=== PATIENT | male | born 1930 | race Caucasian/White ===

== ENCOUNTER → 2017-11-21 | Outpatient (CLI) | payer MEDICARE ==
[~2017-11-21] MED LIST: ASPI-515 PO; ATOR40TA78 PO; CALC-451 PO; CIPR500T87 PO; ESOM20CA PO; FINA5TAB4 PO; LEVO50TA5 PO; MAGN300C PO; METR500T PO; OMEG-76 PO; RAME8TAB19 PO; VITA1CAP PO
== END | disposition home or self-care (01) ==
LOC: CFH 07:20
PROVIDERS: ATTEND Internal Medicine Cardiovascular Disease
DX: R93.1 Abnormal findings on diagnostic imaging of heart and coronary circulation (principal); R06.02 Shortness of breath; I44.0 Atrioventricular block, first degree
CPT/HCPCS: 78452; 93017; A9502

== ENCOUNTER 2019-03-29 11:06 | Outpatient (CLI) | payer MEDICARE | END 2019-03-29 23:59 | disposition home or self-care (01) | LOC: CFH 11:06 | PROVIDERS: ATTEND Urology | DX: C61 Malignant neoplasm of prostate (principal); M41.84 Other forms of scoliosis, thoracic region; M85.88 Other specified disorders of bone density and structure, other site; Z95.2 Presence of prosthetic heart valve | CPT/HCPCS: 71046 ==

== ENCOUNTER 2019-04-02 07:54 | Outpatient (CLI) | payer MEDICARE ==
[2019-04-02] MEDS ORDERED: OMNIPAQUE 350 MG/ML, 150 ML BOTTLE ONE (08:30)
== END 2019-04-02 23:59 | disposition home or self-care (01) ==
LOC: CFH 07:54
PROVIDERS: ATTEND Urology
DX: C61 Malignant neoplasm of prostate (principal); N40.0 Benign prostatic hyperplasia without lower urinary tract symptoms; N20.0 Calculus of kidney; K76.9 Liver disease, unspecified; N28.9 Disorder of kidney and ureter, unspecified
CPT/HCPCS: 71260; 74178; Q9967

== ENCOUNTER 2019-05-02 13:40 | Emergency (ER) | payer MEDICARE ==
[~2019-05-02] VITALS: Ht 167.6 cm; Wt 71.8 kg
[2019-05-02] MEDS ORDERED: LISI-170 PO (14:28)
[2019-05-02] MEDS ORDERED: BICA50TA5 PO (14:29)
--- NOTE | 2019-05-02 14:30 | NUR ---
FIRST CONTACT WITH PT. PT STATES "I'VE BEEN THROUGH A LOT LATELY BEING TREATED FOR PROSTATE CANCER AND ALL OF A SUDDEN I'VE FELT RATHER DEPRESSED. ALSO THIS MORNING MENTALLY I AM NOT QUITE ALERT I WOULD LIKE TO BE". PER FAMILY HE'S NOT SHARP HE USED TO BE. HX MICRO SZ. PT'S AOX4 HERE. RESPS EVEN AND UNLABORED. BP/SPO2 MONITORS IN PLACE. CALL LIGHT WITHIN REACH. EDMD AT BEDSIDE TO EVALUATE AT THIS TIME.
[2019-05-02 14:47] LABS: BASOPHILS # (AUTO) 0.01 x10^3/uL (0-0.1); BASOPHILS % (AUTO) 0 % (0-1); EOSINOPHILS # (AUTO) 0.07 x10^3/uL (0-0.4); EOSINOPHILS % (AUTO) 1 % (1-7); LYMPHOCYTES # (AUTO) 0.97 x10^3/uL (1-3.4); LYMPHOCYTES % (AUTO) 13 % (22-44); MD NO; MEAN CORPUSCULAR HEMOGLOBIN 31.9 pg (27.5-34.5); MEAN CORPUSCULAR HGB CONC 33.1 g/dL (33.2-36.2); MEAN CORPUSCULAR VOLUME 96.5 fL (81-97); MONOCYTES # (AUTO) 0.67 x10^3/uL (0.2-0.8); MONOCYTES % (AUTO) 9 % (2-9); NEUTROPHILS # (AUTO) 6.04 x10^3/uL (1.8-6.8); NEUTROPHILS % (AUTO) 78 % (42-75); PLATELET COUNT 206 x10^3/uL (130-400); RED BLOOD COUNT 4.24 x10^6/uL (4.38-5.82); RED CELL DISTRIBUTION WIDTH 13.2 % (9.4-14.8)
[2019-05-02 14:55] LABS: MICROSCOPIC NOT IND
[2019-05-02 14:59] LABS: ALANINE AMINOTRANSFERASE 31 U/L (12-78); ALBUMIN 3.7 g/dL (3.4-5.0); ANION GAP 6 mmol/L (5-15); CALCIUM 8.5 mg/dL (8.5-10.1); CHLORIDE 108 mmol/L (98-107); CREATININE 1.45 mg/dL (0.7-1.3)
--- NOTE | 2019-05-02 14:59 | NUR ---
SW AT BEDSIDE NOW.
[2019-05-02 15:00] LABS: CULTURE INDICATED? NO
[2019-05-02 15:09] LABS: ALKALINE PHOSPHATASE 94 U/L (45-117); BILIRUBIN,TOTAL 0.4 mg/dL (0.2-1.0); TOTAL PROTEIN 6.8 g/dL (6.4-8.2)
--- NOTE | 2019-05-02 15:21 | NUR ---
PT TO CT NOW.
--- NOTE | 2019-05-02 15:21 | NUR ---
PT AMB TO BR AND BACK TO BR WITH STEADY GAIT.
--- NOTE | 2019-05-02 15:33 | NUR ---
PT BACK TO ROOM FROM CT NOW.
[2019-05-02 15:49] VITALS: BP 151/76
--- NOTE | 2019-05-02 16:11 | NUR ---
edmd at bedside to explain all results at this time. awaiting dispo.
--- NOTE | 2019-05-02 16:40 | NUR ---
Patient given discharge instructions and they have confirmed that they understand the instructions. Patient ambulatory with steady gait.
== END 2019-05-02 16:41 | disposition home or self-care (01) ==
LOC: ED 16:34
DX: F33.9 Major depressive disorder, recurrent, unspecified (principal); I10 Essential (primary) hypertension; E03.9 Hypothyroidism, unspecified; Z85.46 Personal history of malignant neoplasm of prostate
CPT/HCPCS: 36415; 70450; 71045; 80053; 81003; 84443; 85025; 93005; 99284

== ENCOUNTER 2019-09-11 15:49 | Emergency (ER) | payer MEDICARE ==
[~2019-09-11] VITALS: Ht 165.1 cm; Wt 69.5 kg
[~2019-09-11 15:49] MED LIST changes: +BICA50TA5 PO; +LISI-170 PO
[2019-09-11 16:03] VITALS: BP 139/63
[2019-09-11] MEDS ORDERED: DIPH,PERTUSS(ACELL),TET VAC/PF 0.5 ML IM-VACC ONE ×3 (16:28→16:50)
[2019-09-11] MEDS ORDERED: LIDOCAINE-MPF 1%, 5ML ONE (16:28)
[2019-09-11] MEDS ORDERED: LIDOCAINE-MPF 1%, 5ML INFIL ONE (16:30)
--- NOTE | 2019-09-11 16:41 | NUR ---
PT WOULD LIKE US TO CONTACT HIS DAUGHTER CHELSEY [phone]
[2019-09-11] MEDS ORDERED: MICROFIBRILLAR COLLAGEN 1 GM TP ONE (17:07)
[2019-09-11] MEDS ORDERED: MICROFIBRILLAR COLLAGEN 0.5GM/PACK TP ONE (17:30)
== END 2019-09-11 18:27 | disposition home or self-care (01) ==
LOC: ED 18:20
DX: S02.5XXA Fracture of tooth (traumatic), initial encounter for closed fracture (principal); S01.511A Laceration without foreign body of lip, initial encounter; T14.8XXA Other injury of unspecified body region, initial encounter; S50.312A Abrasion of left elbow, initial encounter; S80.212A Abrasion, left knee, initial encounter; E03.9 Hypothyroidism, unspecified; I10 Essential (primary) hypertension; W01.0XXA Fall on same level from slipping, tripping and stumbling without subsequent striking against object, initial encounter; Y93.89 Activity, other specified; Y92.410 Unspecified street and highway as the place of occurrence of the external cause; Y99.8 Other external cause status
CPT/HCPCS: 40650; 70450; 70486; 71046; 90471; 90715; 99284

== ENCOUNTER 2019-09-19 09:21 | Emergency (ER) | payer MEDICARE ==
[~2019-09-19] VITALS: Ht 165.1 cm; Wt 70.9 kg
[2019-09-19 09:41] VITALS: BP 152/75
--- NOTE | 2019-09-20 10:31 | NUR ---
Pt returned to ED, states was seen yesterday for suture removal on laceration to upper lip. Pt verbalizes one suture was left in place and he would like it removed. Spoke with Mallory Naylor RN director of ED, states this RN to remove suture. Wound appears well healing, edges approximated and scabbed. One suture removed from upper lip. Pt tolerated well.
== END 2019-09-19 09:56 | disposition home or self-care (01) ==
LOC: ED 09:50
DX: S01.511D Laceration without foreign body of lip, subsequent encounter (principal); I10 Essential (primary) hypertension; E03.9 Hypothyroidism, unspecified; W18.30XD Fall on same level, unspecified, subsequent encounter
CPT/HCPCS: 99282

== ENCOUNTER 2019-09-26 09:33 | Emergency (ER) | payer MEDICARE ==
[~2019-09-26] VITALS: Ht 167.6 cm; Wt 70.4 kg
[2019-09-26 10:30] LABS: BASOPHILS # (AUTO) 0.01 x10^3/uL (0-0.1); BASOPHILS % (AUTO) 0 % (0-1); EOSINOPHILS # (AUTO) 0.09 x10^3/uL (0-0.4); EOSINOPHILS % (AUTO) 1 % (1-7); LYMPHOCYTES # (AUTO) 0.78 x10^3/uL (1-3.4); LYMPHOCYTES % (AUTO) 11 % (22-44); MD NO; MEAN CORPUSCULAR HEMOGLOBIN 31.7 pg (27.5-34.5); MEAN CORPUSCULAR HGB CONC 33.2 g/dL (33.2-36.2); MEAN CORPUSCULAR VOLUME 95.6 fL (81-97); MONOCYTES # (AUTO) 0.67 x10^3/uL (0.2-0.8); MONOCYTES % (AUTO) 9 % (2-9); NEUTROPHILS # (AUTO) 5.87 x10^3/uL (1.8-6.8); NEUTROPHILS % (AUTO) 79 % (42-75); PLATELET COUNT 313 x10^3/uL (130-400); RED BLOOD COUNT 4.01 x10^6/uL (4.38-5.82); RED CELL DISTRIBUTION WIDTH 13.5 % (9.4-14.8)
[2019-09-26 10:39] LABS: ALBUMIN 3.5 g/dL (3.4-5.0); ANION GAP 6 mmol/L (5-15); CALCIUM 8.7 mg/dL (8.5-10.1); CHLORIDE 108 mmol/L (98-107); CREATININE 1.37 mg/dL (0.7-1.3)
[2019-09-26 12:09] VITALS: BP 156/77
--- NOTE | 2019-09-26 12:10 | NUR ---
ASSIST PRIMARY RN WITH DISCHARGE. PT'S FAMILY MEMBER AT NURSE'S STATION STATING PT IS IMPATIENT, WANTING TO LEAVE NOW. DC INSTRUCTS TO PT AND FAMILY MEMBER WITH VERBALIZED UNDERSTANDING. PT AMBULATORY TO DC DESK.
== END 2019-09-26 12:14 | disposition home or self-care (01) ==
LOC: ED 12:00
DX: R40.0 Somnolence (principal); I10 Essential (primary) hypertension; E03.9 Hypothyroidism, unspecified
CPT/HCPCS: 36415; 70450; 80048; 82040; 85025; 99284

== ENCOUNTER 2019-11-12 04:42 | Observation (INO) | payer MEDICARE ==
[~2019-11-12] VITALS: Ht 167.6 cm; Wt 68.7 kg
[2019-11-12] MEDS ORDERED: SODIUM CHLORIDE FLUSH 10ML SYR IVF ONE (05:30)
--- NOTE | 2019-11-12 05:35 | NUR ---
Pt transported to CT at this time.
[2019-11-12 05:42] LABS: CULTURE INDICATED? YES; MICROSCOPIC INDICATED
[2019-11-12 06:11] LABS: BASOPHILS # (AUTO) 0.02 x10^3/uL (0-0.1); BASOPHILS % (AUTO) 0 % (0-1); EOSINOPHILS # (AUTO) 0.14 x10^3/uL (0-0.4); EOSINOPHILS % (AUTO) 1 % (1-7); LYMPHOCYTES # (AUTO) 0.87 x10^3/uL (1-3.4); LYMPHOCYTES % (AUTO) 7 % (22-44); MD NO; MEAN CORPUSCULAR HEMOGLOBIN 31.8 pg (27.5-34.5); MEAN CORPUSCULAR HGB CONC 33.3 g/dL (33.2-36.2); MEAN CORPUSCULAR VOLUME 95.7 fL (81-97); MEAN PLATELET VOLUME 8.4 fL (7.4-10.4); MONOCYTES # (AUTO) 0.79 x10^3/uL (0.2-0.8); MONOCYTES % (AUTO) 6 % (2-9); NEUTROPHILS % (AUTO) 86 % (42-75); PLATELET COUNT 224 x10^3/uL (130-400); RED BLOOD COUNT 4.22 x10^6/uL (4.38-5.82); RED CELL DISTRIBUTION WIDTH 13.5 % (9.4-14.8)
[2019-11-12 06:21] LABS: INTERNATIONAL NORMALIZED RATIO 0.98 (0.93-1.1); PROTHROMBIN TIME 10.4 Seconds (9.6-11.5)
[2019-11-12 06:23] LABS: ALANINE AMINOTRANSFERASE 31 U/L (12-78); ANION GAP 6 mmol/L (5-15); CALCIUM 9.2 mg/dL (8.5-10.1); CHLORIDE 106 mmol/L (98-107); CREATININE 1.58 mg/dL (0.7-1.3)
[2019-11-12 06:25] LABS: ALKALINE PHOSPHATASE 103 U/L (45-117); BILIRUBIN,TOTAL 0.7 mg/dL (0.2-1.0); TOTAL PROTEIN 7.3 g/dL (6.4-8.2)
--- NOTE | 2019-11-12 07:00 | NUR ---
Late Entry: Report received from Melisa FELTON, pt care transferred to Flynn FELTON and Riya FELTON at this time.
--- NOTE | 2019-11-12 07:05 | NUR ---
Late Entry: Pt resting in gurney, unlabored and even respirations, call light within reach, NAD, denies additional needs at this time. WCTM.
--- NOTE | 2019-11-12 07:47 | NUR ---
Pt resting in gurney, unlabored and even respirations, call light within reach, NAD, denies additional needs at this time. given additional warm balnket for comfort. Urinal emptied. WCTM.
--- NOTE | 2019-11-12 08:44 | NUR ---
Pt resting in bed, NAD, denies additional needs at this time, call light within reach, to be admitted, WCTM.
[2019-11-12] MEDS ORDERED: PIPERACILLIN/TAZO/PMX 3.375GM 50 ML IV ONE (09:30)
[2019-11-12] MEDS ORDERED: PLEASE ENTER HEIGHT AND WEIGHT MC SCH (09:30)
[2019-11-12 11:14] VITALS: BP 150/81
[2019-11-12 11:27] VITALS: BP 150/81
[2019-11-12] MEDS ORDERED: TRAZ-96 PO (11:27)
[2019-11-12] MEDS ORDERED: FLUO10CA13 PO (11:27)
[2019-11-12] MEDS ORDERED: CEFD300C37 PO (11:27)
[2019-11-12] MEDS ORDERED: BUSP7.5T3 PO (11:27)
[2019-11-12] MEDS ORDERED: HEPARIN 5,000 UNITS/ML, 1ML SQ SCH (11:30)
[2019-11-12] MEDS ORDERED: hydrALAzine 20 MG/ML, 1ML IVPush PRN ×2 (11:30→15:30)
[2019-11-12] MEDS ORDERED: ACETAMINOPHEN 325 MG TABLET PO PRN (11:30)
[2019-11-12] MEDS: AMLODIPINE 5 MG TABLET PO SCH (12:59)
[2019-11-12] MEDS: CEFTRIAXONE PMX 1GM/50ML 50 ML IV SCH (12:59)
[2019-11-12 14:07] VITALS: BP 122/67
[2019-11-12] MEDS: BUSPIRONE 10 MG TABLET PO SCH ×2 (14:10→21:25)
[2019-11-12] MEDS: LEVOTHYROXINE 50 MCG TABLET PO SCH (14:10)
[2019-11-12] MEDS ORDERED: CEFTRIAXONE PMX 1GM/50ML 50 ML IV SCH (16:00)
[2019-11-12] MEDS: BICALUTAMIDE 50 MG TABLET PO SCH ×2 (16:31→21:25)
[2019-11-12 19:44] VITALS: BP 145/69
[2019-11-12] MEDS ORDERED: TRAZODONE 50MG TABLET PO SCH (21:00)
[2019-11-12] MEDS ORDERED: ATORVASTATIN 40 MG TABLET PO SCH (21:00)
[2019-11-13 03:00] VITALS: BP 116/65
[2019-11-13 05:37] LABS: BASOPHILS # (AUTO) 0.01 x10^3/uL (0-0.1); BASOPHILS % (AUTO) 0 % (0-1); EOSINOPHILS # (AUTO) 0.17 x10^3/uL (0-0.4); EOSINOPHILS % (AUTO) 2 % (1-7); LYMPHOCYTES # (AUTO) 0.99 x10^3/uL (1-3.4); LYMPHOCYTES % (AUTO) 14 % (22-44); MD NO; MEAN CORPUSCULAR HEMOGLOBIN 31.7 pg (27.5-34.5); MEAN CORPUSCULAR HGB CONC 33.2 g/dL (33.2-36.2); MEAN CORPUSCULAR VOLUME 95.4 fL (81-97); MEAN PLATELET VOLUME 8.8 fL (7.4-10.4); MONOCYTES # (AUTO) 0.58 x10^3/uL (0.2-0.8); MONOCYTES % (AUTO) 8 % (2-9); NEUTROPHILS # (AUTO) 5.13 x10^3/uL (1.8-6.8); NEUTROPHILS % (AUTO) 75 % (42-75); PLATELET COUNT 194 x10^3/uL (130-400); RED CELL DISTRIBUTION WIDTH 13.6 % (9.4-14.8)
[2019-11-13 05:38] LABS: ANION GAP 9 mmol/L (5-15); CALCIUM 8.4 mg/dL (8.5-10.1); CHLORIDE 108 mmol/L (98-107); CREATININE 1.41 mg/dL (0.7-1.3)
[2019-11-13] MEDS: LEVOTHYROXINE 50 MCG TABLET PO SCH (06:27)
[2019-11-13 08:14] VITALS: BP_SYST 129; BP_SYST 144; BP_DIAS 67; BP_DIAS 69
[2019-11-13] MEDS ORDERED: PHARMACY INSTRUCTION MC PRN (08:30)
[2019-11-13] MEDS ORDERED: SULF1TAB24 PO (08:49)
[2019-11-13] MEDS ORDERED: ACID1TAB7 PO (08:49)
[2019-11-13] MEDS ORDERED: LACTOBACILLUS CHEW TABLET ONE (08:51)
[2019-11-13] MEDS ORDERED: LISINOPRIL 20 MG TABLET PO SCH (09:00)
[2019-11-13] MEDS ORDERED: FLUOXETINE 10 MG CAP PO SCH (09:00)
[2019-11-13] MEDS ORDERED: LEVOTHYROXINE 50 MCG TABLET PO SCH (09:00)
[2019-11-13] MEDS ORDERED: FINASTERIDE 5 MG TABLET PO SCH (09:00)
[2019-11-13] MEDS ORDERED: LACTOBACILLUS CHEW TABLET PO SCH (09:00)
[2019-11-13] MEDS ORDERED: ASPIRIN 81 MG TABLET EC PO SCH (09:00)
[2019-11-13] MEDS: BUSPIRONE 10 MG TABLET PO SCH (09:07)
[2019-11-13] MEDS: BICALUTAMIDE 50 MG TABLET PO SCH (09:07)
[2019-11-13] MEDS: AMLODIPINE 5 MG TABLET PO SCH (09:07)
[2019-11-13] MEDS: CEFTRIAXONE PMX 1GM/50ML 50 ML IV SCH (10:36)
[2019-11-13 13:34] VITALS: BP 118/64
[2019-11-13] MEDS ORDERED: SULFAMETH./TRIMETHOPRIM DS 800MG/160MG TABLET PO SCH (21:00)
== END 2019-11-13 14:23 | disposition home or self-care (01) ==
LOC: ED 04:52 → INTOOBSV 09:11 → EDIP 09:11 → 4NE 10:57 → DCLOUNGE 11-13 14:06
PROVIDERS: ADMIT Internal Medicine; ATTEND Internal Medicine
DX: N30.91 Cystitis, unspecified with hematuria (principal); N17.9 Acute kidney failure, unspecified; C61 Malignant neoplasm of prostate; E03.9 Hypothyroidism, unspecified; K59.00 Constipation, unspecified; F32.9 Major depressive disorder, single episode, unspecified; N20.0 Calculus of kidney; I10 Essential (primary) hypertension; Z95.2 Presence of prosthetic heart valve; Z79.899 Other long term (current) drug therapy
CPT/HCPCS: 36415; 74176; 80048; 80053; 81001; 83605; 84145; 84443; 85025; 85610; 87040; 87086; 96365; 96366; 99285; G0378; J0696